=== PATIENT | male | born 1950 | race Caucasian/White ===

== ENCOUNTER 2017-03-08 06:42 | Inpatient (IN) | payer OTHER ==
[2017-01-15 11:18] VITALS: BMI 31.6
--- NOTE | 2017-01-15 11:40 | PAT Medication Instructions ---
Service Date Jan 15, 2017. Current Home Medication List Aspirin (Aspirin Ec), 81 MG PO QPM Atorvastatin (Lipitor), 20 MG PO HS Cholecalciferol (Vitamin D3), 1 TAB PO UD Diclofenac (Voltaren), 75 MG PO BID PRN for Pain Olmesartan/Hctz (Benicar Hct 20/12.5), 1 TAB PO QAM Medication Instructions For Your Scheduled Surgery Contact your surgeon for instructions for: Diclofenac (Voltaren), 75 MG PO BID PRN for Pain - Hold the following medications the morning of surgery: Olmesartan/Hctz (Benicar Hct 20/12.5), 1 TAB PO QAM Cholecalciferol (Vitamin D3), 1 TAB PO UD - Take the following medications as scheduled the night before surgery: Aspirin (Aspirin Ec), 81 MG PO QPM Atorvastatin (Lipitor), 20 MG PO HS If you have any questions please call us at [phone] or [phone] or [phone]
[2017-01-15 11:44] LABS: EOS % 0.7 %; EOS ABS # 0.03 K/uL (0-0.5); HEMATOCRIT 37.5 % (42-52); HEMOGLOBIN 12.8 g/dL (14.0-18.0); IG# 0.01 K/uL (0.00-0.02); LYMPH % 19.9 %; LYMPH ABS # 0.85 K/uL (1.2-3.4); MEAN CELL VOLUME 86.4 fL (80-100); MEAN CORPUSCULAR HEMOGLOBIN 29.5 pg (25-34); MEAN CORPUSCULAR HGB CONC 34.1 g/dl (32-36); MONO ABS # 0.64 K/uL (0.11-0.59); NEUT % 64.2 %; NEUT ABS # 2.74 K/uL (1.4-6.5); PLATELET COUNT 130 K/uL (130-400); RED CELL DISTRIBUTION WIDTH CV 13.1 % (11.5-14.5); RED CELL DISTRIBUTION WIDTH SD 41.6 fL (36.4-46.3); WHITE BLOOD COUNT 4.27 K/uL (4.8-10.8)
[2017-01-15 11:52] LABS: INR 1.1 (0.9-1.1); PTT PATIENT 25.2 SECONDS (21.0-31.0)
--- NOTE | 2017-01-15 12:25 | DIAGNOSTIC IMAGING REPORT ---
CHEST 2 VIEWS ROUTINE HISTORY: 66 years-old Male pat preoperative exam. No acute chest complaints. COMPARISON: None available TECHNIQUE: PA and lateral views of the chest FINDINGS: Mild right hemidiaphragmatic elevation. Cardiac mediastinal and hilar silhouettes are within normal limits. There is no pneumothorax, pleural effusion, focal airspace consolidation or overt pulmonary edema. Bones of the chest appear grossly intact. Mild multilevel endplate spurring of the spine. IMPRESSION: No acute cardiopulmonary process. The above report was generated using voice recognition software. It may contain grammatical, syntax or spelling errors. Electronically signed by: Jourdan Pacheco M.D. 01/15/2017 12:24 PM Dictated Date/Time: 01/15/2017 12:23 PM
[2017-01-15 14:43] LABS: CALCIUM 9.4 mg/dl (8.5-10.1); CREATININE 1.27 mg/dl (0.60-1.40)
[2017-01-16 10:04] VITALS: Ht 188 cm; Wt 111.8 kg
--- NOTE | 2017-03-02 22:18 | HISTORY & PHYSICAL EXAMINATION ---
DATE OF ADMISSION: 03/08/2017 CHIEF COMPLAINT: Bilateral knee pain and discomfort, right side greater than left. HISTORY OF PRESENT ILLNESS: A 67-year-old gentleman referred by my partner Dr. Chaudhary for treatment of his knees. He has got a long history of bilateral knee pain and discomfort that has gotten gradually worse over the past several years. He has been treated with injections, which helped temporarily, but become less effective over time. The right knee is a bit worse than the left. He would now like to proceed with surgical treatment. He does have a history of some chronic back problems as well as kidney stones. PAST MEDICAL HISTORY: Significant for: 1. Hypertension. 2. Elevated cholesterol. 3. Arthritis. 4. Kidney stones. PAST SURGICAL HISTORY: Includes: 1. Kidney stone removal x2 2. Rectal abscess resection. ALLERGIES: None. CURRENT MEDICATIONS: 1. Benicar/hydrochlorothiazide 40/12 once a day. 2. Lipitor 20 mg a day. 3. Metformin. SOCIAL HISTORY: A 67-year-old male patient from [place]. He is . He does not drink. No significant smoking history. FAMILY HISTORY: Negative for heart disease, diabetes, or blood clots. REVIEW OF SYSTEMS: Negative for diabetes, neurologic problems, vascular problems or bleeding disorders. He does have a history of kidney stones and back pain. No current chest pain or shortness of breath. PHYSICAL EXAMINATION: GENERAL: Shows a fairly large middle aged, healthy appearing male. HEENT: Benign. NECK: Supple. No lymphadenopathy. LUNGS: Clear to auscultation. HEART: Regular rate and rhythm. ABDOMEN: Soft, nontender, nondistended. EXTREMITIES: Grossly neurovascularly intact except as follows: Examination of both knees reveals the patient walks with a varus alignment to his knees. He has got moderate size effusions bilaterally. Range of motion is pretty symmetrically about 5 degrees short of full extension and 120 degrees of flexion. There is no pain with hip motion. No instability in either knee. X-RAYS: X-rays of both knees were reviewed. It shows advanced bilateral knee DJD. He has got tricompartmental disease. Both knees are pretty similar. He has got joint space loss. He has got osteophytes. ASSESSMENT: A 67-year-old male with advanced bilateral knee degenerative joint disease, right side more symptomatic than the left. He has failed conservative treatment and would like to have his right knee replaced. PLAN: We will take him to the operating room and do a right total knee replacement. The risks and benefits of this procedure were explained to the patient including but not limited to DVT, PE, , infection, neurologic problems, vascular problems, bleeding disorders or bleeding problems, pain, limited motion, stiffness, need for revision surgery, etc. The patient understands and desires to proceed. He knows to stop NSAIDs 10 days preop. Will hold his metformin 2 days preop. He is hoping to be discharged to home using [facility] home health program. FIDE
[~2017-03-08] VITALS: Ht 188 cm; Wt 111.8 kg
[~2017-03-08 06:42] MED LIST: ACETAMINOPHEN 500 MG TAB PO SCH; ASPI81TA28 PO; ATOR-22 PO; BNC/20125 PO; BUPIVACAINE 0.25% 30 ML VIAL ONE; BUPIVACAINE 0.5 % 5 MG/1 ML PF 10ML VIAL ONE; BUPIVACAINE LIPOSOME 266 MG, BUPIVACAINE/EPINEPHRINE INJ 50 ML, SODIUM CHLORIDE 0.9% PF... INFIL SCH; CEFAZOLIN 2000MG IV PUSH 10 ML IV SCH; DICL-201 PO; FAMOTIDINE 20 MG TAB PO SCH; GABAPENTIN 300 MG CAP PO SCH; LACTATED RINGER'S 1000ML 1,000 ML IV SCH; LACTATED RINGER'S 1000ML 500 ML IV SCH; LACTATED RINGER'S 1000ML IV SCH; METOCLOPRAMIDE HCL 10 MG TAB PO SCH; SCOPOLAMINE 1.5 MG TDSY TD SCH; TRANEXAMIC ACID INJ 1,000 MG in SYRINGE 0 ML IV SCH; VTMD1000 PO
--- NOTE | 2017-03-08 06:47 | History & Physical Bridge Note ---
H&P Re-Evaluation Bridge Note: I have examined the patient, reviewed the History & Physical and in the interval since the performance of the History & Physical I have noted the following changes of clinical significance: No changes noted
[2017-03-08] MEDS ORDERED: MIDAZOLAM HCL 1 MG/ML 2ML VIAL ONE (06:57)
[2017-03-08 07:10] VITALS: BP 142/86; PULSE 93; TEMP 36.5; O2SAT 94
[2017-03-08] MEDS ORDERED: SODIUM CHLORIDE 0.9% PF 50 ML VIAL ONE (09:09)
[2017-03-08] MEDS ORDERED: BUPIVACAINE/EPINEPHRINE 0.25% 1:200,000 30 ML VIAL ONE (09:09)
[2017-03-08] MEDS ORDERED: BACITRACIN 50000 UNIT VIAL ONE (09:09)
[2017-03-08] MEDS ORDERED: BUPIVACAINE LIPOSOME 1/3% 266 MG/20 ML VIAL INFIL ONE (09:09)
[2017-03-08] MEDS ORDERED: ONDANSETRON INJ 2 MG/ML 2 ML VIAL IV PRN ×2 (09:30→11:15)
[2017-03-08] MEDS ORDERED: ATROPINE SULFATE 0.1 MG/ML 5ML SYR IV PRN (09:30)
[2017-03-08] MEDS ORDERED: FENTANYL CITRATE INJ 50 MCG/1 ML 2 ML VIAL IV PRN (09:30)
[2017-03-08] MEDS ORDERED: EpHEDrine SULFATE INJ 50 MG/ML AMP IV PRN (09:30)
[2017-03-08] MEDS ORDERED: KETAMINE HCL INJ 50 MG/ML 10 ML VIAL ONE (09:51)
[2017-03-08] MEDS ORDERED: LIDOCAINE HCL 2% 2 ML VIAL (20MG/ML) ONE (09:51)
[2017-03-08] MEDS ORDERED: PROPOFOL IV EMULSION 10 MG/ML 20 ML VIAL IV ONE (09:51)
--- NOTE | 2017-03-08 11:07 | [facility] Post Operative Brief Note ---
Immediate Operative Summary Operative Date Mar 08, 2017. Pre-Operative Diagnosis Right Knee Advanced Degenerative Joint Disease Post-Operative Diagnosis Right Knee Advanced Degenerative Joint Disease Procedure(s) Performed Right Total Knee Arthroplasty Surgeon Dr. Goyal [employer] Teacher Surgeon(s) SHERYL Gr Estimated Blood Loss 50 ml Findings Consistent with Post-Op Diagnosis Fluids (cc crystalloids) 1600 cc Specimens A. Right Knee Bone and Tissue Drains None Anesthesia Type MAC Spinal Regional Complication(s) none Disposition Accompanied Pt To Recover: no Disposition: Recovery Room / PACU
[2017-03-08] MEDS ORDERED: HYDROmorphone INJ 0.5 MG/0.5 ML SYR IV PRN (11:15)
[2017-03-08] MEDS ORDERED: GLUCAGON FOR INJ 1 MG VIAL SQ PRN (11:15)
[2017-03-08] MEDS ORDERED: DEXTROSE 50% 50 ML SYR IV PRN (11:15)
[2017-03-08] MEDS ORDERED: METOCLOPRAMIDE HCL INJ 5 MG/ML 2 ML VIAL IV PRN (11:15)
[2017-03-08] MEDS ORDERED: TAMSULOSIN HCL 0.4 MG CAP PO PRN (11:15)
[2017-03-08] MEDS ORDERED: GLUCOSE 10 TABS/TUBE PO PRN (11:15)
[2017-03-08] MEDS ORDERED: CHOLECALCIFEROL 1000 INTER.UNIT TAB PO SCH (11:15)
[2017-03-08] MEDS ORDERED: ALUMINUM/MAGNESIUM/SIMETH (MAALOX MAX) 30 ML UDC PO PRN (11:15)
[2017-03-08] MEDS ORDERED: GLUCOSE 40% GEL 15 GM TUBE PO PRN (11:15)
[2017-03-08] MEDS ORDERED: MAGNESIUM HYDROXIDE SUSP 30 ML UDC PO PRN (11:15)
[2017-03-08] MEDS ORDERED: SILVER SULFADIAZINE 1% CR 50 GM JAR EXT PRN (11:15)
[2017-03-08] MEDS ORDERED: ZOLPIDEM TARTRATE 5 MG TAB PO PRN (11:15)
[2017-03-08] MEDS ORDERED: CEFAZOLIN IV 2,000 MG in DEXTROSE 5% 50ML 50 ML IV SCH (11:15)
[2017-03-08] MEDS ORDERED: BISACODYL 10 MG SUPP PR PRN (11:15)
--- NOTE | 2017-03-08 11:37 | OPERATIVE REPORT ---
DATE OF OPERATION: 03/08/2017 SURGEON: Contreras Goyal MD FERTILIZER APPLICATOR: SHERYL Amezcua PREOPERATIVE DIAGNOSIS: Right knee degenerative joint disease. POSTOPERATIVE DIAGNOSIS: Same. PROCEDURE PERFORMED: Right cemented posterior stabilized total knee arthroplasty. COMPLICATIONS: None. ESTIMATED BLOOD LOSS: 50 mL. FLUID REPLACEMENT: 1600 mL crystalloid fluid replacement. ANESTHESIA: Spinal with adductor canal block. DRAINS: None. SPECIMENS: Right knee sent for pathology. OPERATIVE INDICATIONS: The patient is a 67-year-old gentleman, who has had a fairly long history of right knee pain and discomfort. He has been treated by my partner Dr. Chaudhary over the years with injections that had become less successful over time. He failed conservative treatment and elected to proceed with a right total knee replacement. OPERATIVE FINDINGS: Operative findings revealed advanced right knee DJD. He had grade 4 kyic-ft-vaho disease in the medial femoral condyle and medial tibial plateau. He had a varus deformity to his knee. He had significant patellofemoral arthritis as well. Moderate-sized joint effusion. OPERATIVE IMPLANTS: Operative implants consisted of: 1. Biomet Vanguard size 72.5 right posterior stabilized femoral component. 2. Biomet size 79 tibial tray. 3. A 10-mm posterior stabilized polyethylene insert. 4. A 34 x 8.5 all poly patella. OPERATIVE PROCEDURE: The patient was taken to the operating room, identified and placed on the operating table in the supine position. All contact areas were appropriately padded. IV antibiotics were provided by the anesthesia team. A spinal anesthetic and adductor canal block had been provided in the holding area. Simmons catheter was placed in sterile fashion. The right lower extremity was then prepped and draped in the usual sterile fashion. The right leg was elevated and exsanguinated with an Esmarch and tourniquet was placed at 300 mmHg. An anterior approach to the right knee was then performed through a longitudinal incision centered over the patella. Sharp dissection was carried out through the subcutaneous tissues down to the level of the extensor mechanism. A medial parapatellar arthrotomy incision was made. Some subperiosteal dissection was carried out medially. The fat pad was resected from beneath the patellar tendon. The lateral patellofemoral ligament was released. The patella was everted. It was very difficult to trista and it was a fairly large patella, so I elected to cut the patella first. The knee was brought out into full extension. I everted the patella and cleaned the soft tissues off the patella. The patella thickness measured 25 mm in thickness and it was cut down to 15. It was sized to a size 34 patella. Lateral osteophyte was removed. I did not prepare the remainder of the patella until the end of the case. The knee was then flexed. The osteophytes were taken off the distal femur. The ACL and PCL were then released from the distal femur and the tibia subluxated anteriorly. The external tibial alignment jig was then placed in the anterior face of the tibia and adjusted 16 mm medially. Proximal tibial cut was made to remove about a millimeter of bone from most efficient deficient aspect of the medial tibial plateau. I then sized the tibia. I ended up using a 79 tibial tray. The 83 covered the tibia, but it had some overhanging posterolaterally and I did not want that, so we downsized this slightly. Some osteophytes were taken off medially. Attention was then drawn to the femur. The distal femur was entered with a sharp drill. Intramedullary canal was suctioned. A right 6-degree valgus cutting guide was placed. Distal femoral cutting block was pinned in place. Distal femoral cut was made to take an additional 3 mm of bone off the distal femur. The femur was then sized to a size 72.5. We did downsize this slightly. The AP cutting block was pinned parallel to the epicondylar axis, which was 3 degrees of external rotation. The anterior cut, anterior chamfer, posterior cut, and posterior chamfer cuts were made. Box cutting guide was placed and adjusted slightly lateral and the box cut was made. The knee was flexed. The remnants of the medial and lateral menisci were excised. The osteophytes were taken off the posterior aspect of the femur. Trial femoral component was placed. Tibial tray was pinned in maximum external rotation and drill and stem punch were used to create defect in proximal tibia for the tibial tray. The knee was then trialed and a 10-mm insert fit most appropriately. Attention was then drawn to the patella. The patella was cleaned of all soft tissues. The patella was then prepared. We had previously cut this already. Lug holes were drilled for a 34 patella. The patella button was placed. Knee was taken through range of motion and patella tracked nicely with no thumbs test. Attention was then drawn toward placement of the permanent components. All trial components were removed. Bone plug was placed in the distal femur to limit blood loss. A double batch of Palacos G cement was mixed. A right size 72.5 posterior stabilized femoral component, size 79 tibial tray, a 10-mm posterior stabilized polyethylene insert, and a 34 x 8.5 all poly patella then cemented in place. Knee was brought out in extension until cement hardened. A final cement check was then performed. Pericapsular tissues were injected with a total of 100 mL of a combination of 20 mL of Exparel, 30 mL of normal saline, and 50 mL of 0.25% Marcaine with epinephrine. The patient did receive 1 gram of tranexamic acid. The tourniquet was then let down for final tourniquet time of 59 minutes. Hemostasis was assured with use of electrocautery. The extensor mechanism was then closed with a combination of #1 PDS suture and #1 Vicryl suture in a [id number] fashion. Extensor mechanism was checked and found to be intact. The subcutaneous tissues were then closed with 2-0 Dexon suture in a buried interrupted fashion. Skin was closed skin francisco. Leg was then cleaned and dried and a sterile dressing of Xeroform, 4 x 4, sterile cast padding and Doug bandage were applied. The patient then transferred to the recovery room in stable condition. The patient tolerated the procedure well with no complications. All needle and sponge counts were correct at the end of the operation. I attest to the content of the Intraoperative Record and any orders documented therein. Any exception s are noted below.
--- NOTE | 2017-03-08 11:44 | Anesthesiology Progress Note ---
Anesthesia Post Op Note Date & Time Mar 08, 2017 at 11:44 Vital Signs Vital Signs Past 12 Hours Date Time Temp Pulse Resp B/P (MAP) Pulse Ox O2 Delivery O2 Flow Rate FiO2 03/08/17 11:40 76 16 114/61 100 4 03/08/17 11:30 84 16 115/64 99 4 03/08/17 11:20 86 16 120/64 99 4 03/08/17 11:11 36.8 85 16 111/63 100 Oxymask 10 03/08/17 07:10 36.5 93 20 142/86 94 Room Air Notes Mental Status: alert / awake / arousable, participated in evaluation Pt Amnestic to Procedure: Yes Nausea / Vomiting: adequately controlled Pain: adequately controlled Airway Patency, RR, SpO2: stable & adequate BP & HR: stable & adequate Hydration State: stable & adequate Neuraxial Anesthesia: was administered, sensory block is resolving Anesthetic Complications: no major complications apparent
--- NOTE | 2017-03-08 12:13 | DIAGNOSTIC IMAGING REPORT ---
R KNEE 1 OR 2 VIEWS ROUTINE CLINICAL HISTORY: Right knee degenerative joint disease. Arthroplasty. COMPARISON: Right knee radiographs March 04, 2017. FINDINGS: Alignment of the total right knee arthroplasty is anatomic. There is no fracture or unexpected radiopaque foreign body. Skin francisco are present. IMPRESSION: Expected findings following total right knee arthroplasty. Electronically signed by: Esteban Noel M.D. 03/08/2017 12:11 PM Dictated Date/Time: 03/08/2017 12:11 PM
[2017-03-08 13:45] VITALS: BP 107/62; PULSE 89; O2SAT 98
[2017-03-08 14:19] VITALS: BP 101/62; PULSE 82; O2SAT 97
[2017-03-08 15:12] VITALS: BP 144/79; PULSE 71; TEMP 36.7; O2SAT 98
[2017-03-08] MEDS: SODIUM CHLORIDE 0.9% 1000ML 1,000 ML IV SCH ×2 (15:38→21:36)
[2017-03-08] MEDS: KETOROLAC TROMETHAMINE 15 MG/ML VIAL IV. SCH ×2 (15:38→21:35)
[2017-03-08] MEDS ORDERED: CHECK SCOPOLAMINE PATCH PLACEMENT SCH (16:00)
[2017-03-08] MEDS ORDERED: TRANEXAMIC ACID INJ 1,000 MG in SODIUM CHLORIDE 0.9% 100ML 100 ML IV SCH (17:15)
--- NOTE | 2017-03-08 17:48 | PROGRESS NOTE ---
DATE: 03/08/2017 SUBJECTIVE: A 67-year-old male postop from right knee replacement. He is doing pretty well. He is having some spasm in his quad. Denies any chest pain or shortness of breath. Not feeling dizzy or lightheaded. OBJECTIVE: VITAL SIGNS: Temperature 36.7. Vital signs stable. PHYSICAL EXAMINATION: GENERAL: Reveals a pleasant middle-aged male. He is sitting up in his bedside with his legs dangling over the bed. His knee is bent about 90 degrees. He looks reasonably comfortable. LUNGS: Clear to auscultation. HEART: Regular rate and rhythm. ABDOMEN: Soft, nontender, nondistended. EXTREMITIES: Grossly neurovascularly intact except as follows: Examination of the right leg reveals the knee to be bent at about 90 degrees. There is no significant drainage on the dressing. He can dorsiflex and plantarflex his foot appropriately. He is neurologically intact. X-RAYS: X-ray of the right knee from recovery room reviewed. It shows right cemented posterior stabilized total knee arthroplasty. Components are looking to be in good position. No signs of problems. ASSESSMENT: A 67-year-old gentleman postop from right knee replacement, doing well. His pain is controlled. He is neurologically intact. He does have a little bit of muscle spasms. PLAN: 1. DVT prophylaxis including thigh-high TEDs, SCDs, and aspirin twice a day. 2. PT/OT. Weightbearing as tolerated. Right total knee protocol. 3. Pain control. Doing pretty well with current pain regimen. Really not much to do for the muscle spasms other than give them time. 4. IV antibiotics x24 hours. 5. Disposition: Plan to discharge to home with some home health once adequately recovered.
[2017-03-08] MEDS: FERROUS GLUCONATE 324 MG TAB PO SCH (18:24)
[2017-03-08] MEDS: CEFAZOLIN IV 2,000 MG in SYRINGE 0 ML IV SCH (18:26)
[2017-03-08] MEDS: INSULIN HUMAN REGULAR SC SCH ×2 (18:28→20:57)
[2017-03-08 19:55] VITALS: BP 126/60; PULSE 74; TEMP 37.1; O2SAT 98
[2017-03-08] MEDS: ATORVASTATIN 20 MG TAB PO SCH (20:52)
[2017-03-08] MEDS: DOCUSATE SODIUM 100 MG CAP PO SCH (20:52)
[2017-03-08] MEDS: SENNA 8.6 MG TAB PO SCH (20:53)
[2017-03-08] MEDS: ASPIRIN 325 MG ECTAB PO SCH (20:53)
[2017-03-08] MEDS: TRAMADOL HCL 50 MG TAB PO PRN (20:54)
[2017-03-08] MEDS: ACETAMINOPHEN 500 MG TAB PO SCH (21:35)
[2017-03-08 23:19] VITALS: BP 138/67; PULSE 86; TEMP 37.5; O2SAT 94
[2017-03-09] MEDS: CEFAZOLIN IV 2,000 MG in SYRINGE 0 ML IV SCH (02:14)
[2017-03-09] MEDS: TRAMADOL HCL 50 MG TAB PO PRN ×4 (02:22→19:41)
[2017-03-09 03:06] VITALS: BP 129/69; PULSE 87; TEMP 37.4; O2SAT 95
[2017-03-09] MEDS: KETOROLAC TROMETHAMINE 15 MG/ML VIAL IV. SCH ×4 (04:09→21:31)
[2017-03-09] MEDS: SODIUM CHLORIDE 0.9% 1000ML 1,000 ML IV SCH ×2 (05:45→12:12)
[2017-03-09] MEDS: ACETAMINOPHEN 500 MG TAB PO SCH ×3 (05:46→21:31)
[2017-03-09 07:06] VITALS: BP 124/73; PULSE 90; TEMP 36.8; O2SAT 95
--- NOTE | 2017-03-09 07:29 | PROGRESS NOTE ---
DATE: 03/09/2017 SUBJECTIVE: A 67-year-old gentleman postop day #1 from a right knee replacement. She is doing pretty well. Moderate amount of pain, but is responding to pain medicines. Denies any chest pain or shortness of breath. Not feeling dizzy or lightheaded. OBJECTIVE: VITAL SIGNS: Temperature 36.8. Vital signs stable. GENERAL: Physical examination reveals a pleasant, middle-aged male. He is lying in bed and looks pretty comfortable. EXTREMITIES: Examination of the right leg reveals the dressing to be clean, dry and intact. No significant drainage. He can dorsiflex and plantarflex his foot appropriately. He is neurologically intact. LABORATORY DATA: Pending. ASSESSMENT: A 67-year-old gentleman postop day #1 from a right knee replacement, doing pretty well. His pain is reasonably well controlled. He is neurologically intact. PLAN: 1. DVT prophylaxis including thigh-high TEDs, SCDs, and aspirin twice a day. 2. PT/OT. Weightbear as tolerated. Right total knee protocol. 3. Pain control. Doing pretty well with current pain regimen. 4. Disposition: Plan to discharge to home with some home health once adequately recovered.
[2017-03-09 07:57] LABS: HEMATOCRIT 35.4 % (42-52); HEMOGLOBIN 12.4 g/dL (14.0-18.0); MEAN CELL VOLUME 85.1 fL (80-100); MEAN CORPUSCULAR HEMOGLOBIN 29.8 pg (25-34); PLATELET COUNT 144 K/uL (130-400); RED CELL DISTRIBUTION WIDTH CV 13.5 % (11.5-14.5); RED CELL DISTRIBUTION WIDTH SD 41.5 fL (36.4-46.3); WHITE BLOOD COUNT 9.06 K/uL (4.8-10.8)
[2017-03-09 08:42] LABS: CALCIUM 8.9 mg/dl (8.5-10.1); CREATININE 1.26 mg/dl (0.60-1.40); POTASSIUM 3.9 mmol/L (3.5-5.1)
[2017-03-09] MEDS ORDERED: OLMESARTAN PO SCH (09:00)
[2017-03-09] MEDS ORDERED: HCTZ PO SCH (09:00)
[2017-03-09] MEDS: ASPIRIN 325 MG ECTAB PO SCH ×2 (09:25→21:31)
[2017-03-09] MEDS: FERROUS GLUCONATE 324 MG TAB PO SCH ×3 (09:25→18:26)
[2017-03-09] MEDS: OLMESARTAN MEDOXOMIL 20 MG TAB PO SCH (09:26)
[2017-03-09] MEDS: HYDROCHLOROTHIAZIDE 25 MG TAB PO SCH (09:26)
[2017-03-09] MEDS: PANTOprazole SOD 40 MG TAB PO SCH (09:26)
[2017-03-09] MEDS: MULTIVITAMIN TAB PO SCH (09:27)
[2017-03-09] MEDS: DOCUSATE SODIUM 100 MG CAP PO SCH ×2 (09:27→21:29)
[2017-03-09] MEDS: INSULIN HUMAN REGULAR SC SCH ×4 (09:33→21:40)
--- NOTE | 2017-03-09 09:52 | Anesthesiology Progress Note ---
Anesthesia Post Op Note Date & Time Mar 09, 2017 at 09:51 Vital Signs Vital Signs Past 12 Hours Date Time Temp Pulse Resp B/P (MAP) Pulse Ox O2 Delivery O2 Flow Rate FiO2 03/09/17 07:06 36.8 90 18 124/73 (90) 95 Room Air 03/09/17 03:06 37.4 87 18 129/69 (89) 95 Room Air 03/08/17 23:19 37.5 86 20 138/67 (90) 94 Room Air Notes Mental Status: alert / awake / arousable, participated in evaluation Pt Amnestic to Procedure: Yes Nausea / Vomiting: adequately controlled Pain: adequately controlled Airway Patency, RR, SpO2: stable & adequate BP & HR: stable & adequate Hydration State: stable & adequate Neuraxial Anesthesia: was administered, sensory block resolved Anesthetic Complications: no major complications apparent
[2017-03-09 10:47] VITALS: BP 128/78; PULSE 95; TEMP 36.7; O2SAT 97
[2017-03-09 14:52] VITALS: BP 123/66; PULSE 95; TEMP 37.2; O2SAT 97
[2017-03-09] MEDS: ATORVASTATIN 20 MG TAB PO SCH (21:29)
[2017-03-09] MEDS: SENNA 8.6 MG TAB PO SCH (21:29)
[2017-03-09 23:31] VITALS: BP 136/72; PULSE 87; TEMP 36.9; O2SAT 96
[2017-03-10] MEDS: KETOROLAC TROMETHAMINE 15 MG/ML VIAL IV. SCH ×2 (03:30→10:20)
[2017-03-10] MEDS: ACETAMINOPHEN 500 MG TAB PO SCH (05:46)
[2017-03-10 06:34] VITALS: BP 127/75; PULSE 84; TEMP 36.9; O2SAT 97
[2017-03-10] MEDS: FERROUS GLUCONATE 324 MG TAB PO SCH (07:38)
[2017-03-10] MEDS: OLMESARTAN MEDOXOMIL 20 MG TAB PO SCH (07:38)
[2017-03-10] MEDS: DOCUSATE SODIUM 100 MG CAP PO SCH (07:39)
[2017-03-10] MEDS: ASPIRIN 325 MG ECTAB PO SCH (07:40)
[2017-03-10] MEDS: HYDROCHLOROTHIAZIDE 25 MG TAB PO SCH (07:41)
[2017-03-10] MEDS: MULTIVITAMIN TAB PO SCH (07:41)
[2017-03-10] MEDS: PANTOprazole SOD 40 MG TAB PO SCH (07:42)
[2017-03-10] MEDS: INSULIN HUMAN REGULAR SC SCH (07:48)
[2017-03-10] MEDS ORDERED: ULT50X PO (08:03)
[2017-03-10] MEDS ORDERED: ASPEC325 PO (08:03)
[2017-03-10] MEDS ORDERED: ACET-24 PO (08:03)
--- NOTE | 2017-03-10 08:05 | Discharge Instructions ---
Discharge Instructions Date of Service Mar 10, 2017. Admission Reason for Admission: Right Knee Degenerative Joint Disease Discharge Discharge Diagnosis / Problem: Right Knee Replacement Discharge Goals Goal(s): Decrease discomfort, Improve function, Increase independence, Improve disease control, Therapeutic intervention Activity Recommendations Activity Limitations: per Instructions/Follow-up section Weightbearing Status: Right weightbearing . Instructions / Follow-Up Instructions / Follow-Up ACTIVITY RECOMMENDATIONS: Physical Therapy: * You will go to physical therapy three times each week for four to six weeks after your surgery in order to regain your knee range of motion and to retrain your knee to work properly. * It is just as important to make sure you are getting your knee perfectly straight as it is to regain your knee bend. * Taking a pain pill an hour before therapy can help you have a more productive and comfortable therapy session. Home Exercise: * You were shown a series of exercises (heel props, heel slides, etc.) in the hospital. Do these exercises three to four times each day including the exercises you were shown in physical therapy. Walking: * Get up and walk several times each day. For the first four weeks, try not to stand or walk for more than one hour at a time. If you do stand or walk for more than one hour, you will not hurt anything, but your knee and leg will likely swell. * As you feel comfortable, you may change from the walker or crutches to a cane and then to independent walking. MEDICATIONS: New Medicine: * You will likely be taking one or more of these medications: 1. Tramadol - A quick and shorter-acting pain medication. Take one to two tablets every four to six hours to lessen your pain. 2. Aspirin - Thins your blood to lessen the chance of forming a blood clot. * The most common side effects of pain medicine and iron are nausea and constipation. If nausea or constipation is too much of a problem or if you have any questions about your new medicines or doses, call [facility] at [phone]. We will try to help you manage these issues. VERY IMPORTANT TO READ AND REVIEW" Pain: * The immediate post-operative period after knee replacement surgery is often quite painful. * You are given a prescription for pain medicine. You should take it, as directed, when you need it, especially before physical therapy and before going to bed. Pain that interferes with sleep is very common and can last several months. * You will likely need pain medicine for the first four to six weeks. It will not stop all of the pain. The pain will lessen and as you feel better, you may change to milder pain medicine such as Tylenol. * The most common side effects of pain medicine are nausea and constipation, so don't take more than you need. SPECIAL CARE INSTRUCTIONS: TEDs/Elastic Stockings: * The white elastic stockings help limit swelling and prevent blood clots from forming in your legs. The more you wear them, the more they work. * Wear them for six weeks after knee replacement surgery and four weeks after partial knee replacement. Prevention of Infection: * Take antibiotics one hour before any dental cleaning, dental work, urological procedure, gastrointestinal procedure or any invasive surgery in order to prevent your new joint from getting infected. * You may get the antibiotics from the doctor performing the procedure or you may call our office at before and we will call in a prescription to the pharmacy of your choice. Things to Watch For: * Drainage from the incision site that occurs more than one week after your surgery. * Severely increased knee/leg pain or swelling. * Increased redness at the incision site. * Fever above 102 degrees Fahrenheit. * Unusual chest pain or shortness of breath. * Unusual pain or burning with urination. Call [facility] at with any of the above problems or if you have any questions about your medicines or recovery. FOLLOW UP VISIT: Make an appointment to see your doctor for approximately two weeks after surgery for a progress check and staple removal by calling the office at . Current Hospital Diet Patient's current hospital diet: Diabetes Type 2 Diet Discharge Diet Recommended Diet: Diabetes Type 2 Diet Procedures Procedures Performed: Right Total Knee Arthroplasty Pending Studies Studies pending at discharge: no Laboratory Results Hemoglobin A1c Test 01/15/17 11:13 Range/Units Estimated Average Glucose 126 mg/dl Hemoglobin A1c 6.0 H 4.5-5.6 % Medical Emergencies . Who to Call and When: Medical Emergencies: If at any time you feel your situation is an emergency, please call 911 immediately. . Non-Emergent Contact Non-Emergency issues call your: Surgeon . "Provider Documentation" section prepared by Contreras Goyal. . VTE Core Measure Inpt VTE Proph given/why not?: Other Anticoagulation, T.E.D. Stockings, SCD's
--- NOTE | 2017-03-10 08:15 | PROGRESS NOTE ---
DATE: 03/10/2017 SUBJECTIVE: A 67-year-old gentleman postop day 2 from a right knee replacement. He is doing well. Pain is improved today. No chest pain or shortness of breath. Not feeling dizzy or lightheaded. OBJECTIVE: VITAL SIGNS: Temperature 36.9. Vital signs stable. PHYSICAL EXAMINATION: GENERAL: Reveals a healthy, pleasant, middle-aged male. He is sitting up in bed and looks pretty comfortable. EXTREMITIES: Examination of the right leg reveals the dressing to be clean, dry and intact. Leg is well aligned. He can dorsiflex and plantarflex his foot appropriately. Calf is soft and supple. He is neurologically intact. ASSESSMENT: A 67-year-old gentleman postop day 2 from a right knee replacement, doing pretty well. Pain is controlled. He is neurologically intact. PLAN: 1. DVT prophylaxis including thigh-high TEDs, SCDs, and aspirin twice a day. 2. PT, OT. Weight bear as tolerated. Right total knee protocol. 3. Pain control, doing well with current pain regimen. 4. Disposition: Plan to discharge to home with some home health later today.
[2017-03-10 10:51] VITALS: BP 127/75; PULSE 84; TEMP 36.9; O2SAT 97
[2017-03-10] MEDS: TRAMADOL HCL 50 MG TAB PO PRN (11:26)
--- NOTE | 2017-03-21 09:58 | DISCHARGE SUMMARY ---
ADMITTING PHYSICIAN AND SURGEON: Contreras Goyal MD. ADMITTING DIAGNOSIS: Right knee degenerative joint disease. SURGERY PERFORMED: Right total knee arthroplasty. SECONDARY DIAGNOSES: Hypertension, elevated cholesterol, arthritis, kidney stones. CONSULTS: None obtained. HISTORY AND PHYSICAL EXAMINATION: Well documented in the patient's chart. HOSPITAL COURSE: The patient was admitted on 03/08/2017 underwent total knee arthroplasty. He tolerated the procedure well. There were no complications. He was transferred to the PACU postoperatively and later to the orthopedic floor for further care. He was given Ancef for antibiotic prophylaxis, ARMIDA stockings, SCDs and aspirin for DVT prophylaxis. Hemoglobin, hematocrit and vital signs were monitored during hospital stay and remained stable. He did not require any blood transfusions. There were no complications. By postoperative day 2, he was tolerating a regular diet, pain was controlled with oral pain medicine. He was participating in physical therapy and had no signs or symptoms of deep vein thrombosis. On postop day 2, he was discharged home and set up with home health services, given printed discharge instructions including new prescription for extra strength Tylenol, aspirin 325 mg b.i.d. and tramadol. Continue his home medications, continue physical therapy, weightbearing as tolerated, ARMIDA stockings. Follow up in 10-12 days or sooner if there are any problems or concerns.
== END 2017-03-10 12:02 | disposition home health service (06) | DRG 470 ==
LOC: C.ACU 06:42 → C.MSN 11:13 → ENRESERV 12:51
PROVIDERS: ADMIT Orthopaedic Surgery Sports Medicine; ATTEND Orthopaedic Surgery Sports Medicine
PROC: 0SRC0J9 Replacement of Right Knee Joint with Synthetic Substitute, Cemented, Open Approach (ICD-10-PCS; principal; 2017-03-08 09:15)
DX: M17.11 Unilateral primary osteoarthritis, right knee (principal); I10 Essential (primary) hypertension; E78.5 Hyperlipidemia, unspecified; Z88.5 Allergy status to narcotic agent; Z88.8 Allergy status to other drugs, medicaments and biological substances

== ENCOUNTER 2023-10-30 07:39 | Observation (INO) ==
--- NOTE | 2023-09-21 13:51 | PAT Medication Instructions ---
Medication Instructions Date of Service September 21, 2023 Home Medications Motrin 2 tab PO HS PRN atorvastatin 20 mg tablet 20 mg PO HS cetirizine 10 mg tablet (Zyrtec) 10 mg PO DAILY PRN cholecalciferol (vitamin D3) 25 mcg (1,000 unit) capsule (Vitamin D3) 25 mcg PO HS doxycycline hyclate 75 mg tablet 75 mg PO HS ASK your surgeon for instructions Motrin 2 tab PO HS PRN DO NOT take the morning of surgery cetirizine 10 mg tablet (Zyrtec) 10 mg PO DAILY PRN Take evening before surgery atorvastatin 20 mg tablet 20 mg PO HS cholecalciferol (vitamin D3) 25 mcg (1,000 unit) capsule (Vitamin D3) 25 mcg PO HS doxycycline hyclate 75 mg tablet 75 mg PO HS Other Notes NOTHING TO EAT OR DRINK AFTER MIDNIGHT. If you have any questions please call us at [phone] or [phone] or [phone] or [phone]
--- NOTE | 2023-10-01 10:21 | Anesthesiology Consultation ---
Date of Service October 01, 2023 Assessment & Plan (1) Encounter for pre-operative examination: Plan - check BSG am DOS. - difficult IV stick. IV team. - Outpatient joint assessment: Patient is currently scheduled for inpatient pathway. If re-evaluated and patient/surgeon requests outpatient pathway, patient is acceptable candidate for outpatient joint program from anesthesia standpoint pending surgeon's office assessment of pt motivation/support/comple tion of same day joint program preop requirements. Chart Review Chart Review: Acceptable Risk for Surgery and Patient seen in Pre Admission Testing Teaching & Discussion Pre-Anesthesia Teaching/Discussion Notes: Instructed NPO after midnight before surgery, except medications with 15 cc of water. Medication instructions provided according to the PAT guidelines. History Surgery Operation Date: 10/30/23 10:40 Proposed Procedures p Left Total Knee Arthroplasty - Contreras Goyal MD Height/Weight Height: 6 ft 1 in Weight: 102 kg Allergies Allergy/AdvReac Type Severity Reaction Status Date / Time oxycodone AdvReac Mild pt does Verified 09/18/23 10:55 not like how it makes him feel prefers not to take hydrochlorothiazide AdvReac Unknown NAUSEA,BP Verified 09/18/23 10:55 ELEVATES olmesartan AdvReac Unknown NAUSEA,BP Verified 09/18/23 10:55 ELEVATES Medications Home Medications Medication Instructions Recorded Confirmed Last Taken Motrin 2 tab PO HS PRN Pain 09/18/23 09/18/23 Unknown atorvastatin 20 mg tablet 20 mg PO HS 09/18/23 09/18/23 Unknown cetirizine 10 mg tablet (Zyrtec) 10 mg PO DAILY PRN Allergy Symptoms 09/18/23 09/18/23 Unknown cholecalciferol (vitamin D3) 25 25 mcg PO HS 09/18/23 09/18/23 Unknown mcg (1,000 unit) capsule (Vitamin D3) doxycycline hyclate 75 mg tablet 75 mg PO HS 09/18/23 09/18/23 Unknown Past Medical History Medical History Diabetes diet controlled Hyperlipidemia controlled, stable after weight loss Hypertension Slow to wake up after anesthesia following kidney surgery, only happened this one time Patient denies h/o stroke, seizures, heart attack, heart failure, blood clots/DVTs or blood transfusions. Exercise / Class Metabolic Activity II 4-5 Yardwork/Stairs/Walk up hill (denies chest discomfort or shortness of breath with one flight of stairs) Past Surgical History Surgical History History of kidney surgery ~2019, the [facility], open surgery for removal of golf ball sized kidney stone History of right knee joint replacement Hx of colonoscopy Past Anesthesia History No Family Hx of Anesthesia Complications and Other (see above) History of PONV No Hx of PONV and No Hx of Motion Sickness Social History Smoking Status: Never smoker Do You Dip or Chew Tobacco: No Hx Alcohol Use: Yes (occasional 50 years ago) Hx Substance Use: No substance use type: does not use Review of Systems Patient denies chest pain, shortness of breath, dyspnea on exertion, snoring, witnessed apneas, reflux, fever, chills, cough, wheezing, or palpitations. Physical Exam Vital Signs Vitals BP 144/90 P 89 TEMP 98.2 SP02 97% on RA RESP 18 Physical Patient resting comfortably in chair in no acute distress, alert and oriented, responding appropriately throughout visit Full cervical extension range of motion without pain TMD 3.5 finger breadths Mallampati Score 2 Dentition: intact, denies broken or loose teeth, caps/crowns, implants or bridges Lungs: normal respiratory effort. Good air movement, clear throughout to auscultation, no adventitious breath sounds Cardiac: regular rate and rhythm, no murmurs noted Carotid arteries: negative bruit bilat Lab Results Anesthesia Preop Results Results Anesthesia Widget: WBC 4.09 K/ul (4.8-10.8) L 10/01/23 Hgb 13.7 g/dl (14.0-18.0) L 10/01/23 Hct 39.3 % (42.0-52.0) L 10/01/23 Plt 126 K/uL (130-400) L 10/01/23 Na 141 mmol/L (136-145) 10/01/23 K 4.4 mmol/L (3.5-5.1) 10/01/23 Cl 108 mmol/L (98-107) H 10/01/23 CO2 28 mmol/L (21-32) 10/01/23 BUN 16 mg/dl (6-23) 10/01/23 Creat 0.79 mg/dl (0.6-1.4) 10/01/23 Glucose Level 96 mg/dl (70-99(Fasting)) 10/01/23 PT 11.3 Seconds (9.0-12.0) 10/01/23 PTT 26 Seconds (21-31) 10/01/23 INR 1.0 (0.9-1.1) 10/01/23 Blood Type O Positive 10/01/23 Antibody Screen NEGATIVE 10/01/23 Testing Laboratory Results 08/22/23 A1c: 5.2% Electrocardiogram Date: 10/01/23 NSR, rate 80 bpm Chest X-Ray Date: 10/01/23 No acute chest disease.
[~2023-10-30 07:39] MED LIST changes: -ACETAMINOPHEN 500 MG TAB PO SCH; -ASPI81TA28 PO; -ATOR-22 PO; -BNC/20125 PO; -BUPIVACAINE 0.25% 30 ML VIAL ONE; -BUPIVACAINE 0.5 % 5 MG/1 ML PF 10ML VIAL ONE; -BUPIVACAINE LIPOSOME 266 MG, BUPIVACAINE/EPINEPHRINE INJ 50 ML, SODIUM CHLORIDE 0.9% PF... INFIL SCH; -CEFAZOLIN 2000MG IV PUSH 10 ML IV SCH; -DICL-201 PO; -FAMOTIDINE 20 MG TAB PO SCH; -GABAPENTIN 300 MG CAP PO SCH; -LACTATED RINGER'S 1000ML 1,000 ML IV SCH; -LACTATED RINGER'S 1000ML 500 ML IV SCH; -LACTATED RINGER'S 1000ML IV SCH; -METOCLOPRAMIDE HCL 10 MG TAB PO SCH; +ROPIVACAINE 0.5% 5 MG/ML 30 ML VIAL ONE; -SCOPOLAMINE 1.5 MG TDSY TD SCH; -TRANEXAMIC ACID INJ 1,000 MG in SYRINGE 0 ML IV SCH; -VTMD1000 PO
[2023-10-30] MEDS ORDERED: fentaNYL citrate PF 100 MCG/2 ML VIAL ONE ×2 (07:53→07:54)
[2023-10-30] MEDS ORDERED: MIDAZOLAM HCL 1 MG/ML 2ML VIAL ONE ×2 (07:54)
[2023-10-30] MEDS: LR 60ML/HR IV SCH (08:46)
[2023-10-30] MEDS: LR 500ML BOLUS, THEN 15ML/HR IV SCH (08:46)
[2023-10-30] MEDS: METOCLOPRAMIDE HCL 10 MG TABLET PO SCH (08:47)
[2023-10-30] MEDS: FAMOTIDINE 20 MG TAB PO SCH (08:47)
[2023-10-30] MEDS: ACETAMINOPHEN 500 MG TAB PO SCH ×2 (08:47→14:24)
[2023-10-30] MEDS: CeleBREX 200 MG CAP PO SCH (08:47)
--- NOTE | 2023-10-30 09:01 | History & Physical Bridge Note ---
Date of Service October 30, 2023 History & Physical Bridge Note I have examined the patient, reviewed the History & Physical and in the interval since the performance of the History & Physical I have noted the following changes of clinical significance: no changes noted
[2023-10-30] MEDS: dexAMETHasone**PF** 10 MG/ML VIAL ONE ×2 (09:10)
[2023-10-30] MEDS: dexAMETHasone**PF** 10 MG/ML VIAL IV ONE (09:10)
[2023-10-30] MEDS ORDERED: PROPOFOL IV EMULSION 10 MG/ML 20 ML VIAL IV ONE (10:46)
[2023-10-30] MEDS: ceFAZolin 2000MG 2,000 MG/15 ML SYR IV SCH ×2 (10:48→17:57)
[2023-10-30] MEDS ORDERED: KETAMINE HCL 10MG/ML SYR ONE (11:13)
[2023-10-30] MEDS: ORTHO JOINT ANESTHETIC ONE (11:23)
[2023-10-30] MEDS: TRANEXAMIC ACID 1,000 MG **IV Intra-op IV SCH (11:43)
[2023-10-30] MEDS: ROPIV 0.5% 246mg, Ketorolac 30mg, EPINEPHrine 0.5mg in NSS INFIL SCH (11:44)
--- NOTE | 2023-10-30 12:35 | Operative Report ---
PG Post Operative Report Pre & Post Diagnosis Operation Date: 10/30/23 09:45 Pre-Op Diagnosis: Left Knee Degenerative Joint Disease Post-Op Diagnosis: Left Knee Degenerative Joint Disease I identified the patient and participated in the time-out.: Yes Procedure Operation Date: 10/30/23 09:45 Actual Procedures p Left Total Knee Arthroplasty(Left) - Contreras Goyal MD Surgeon Contreras Goyal MD Peripheral Equipment Operator Chun Telles PA-C Estimated Blood Loss 50 Findings Consistent with Post-Op Diagnosis Operative findings were advanced left knee DJD. He extensive grade 4 [id number] disease and eburnation of the entire medial compartment. He had grade 4 changes the patellofemoral joint. The lateral compartment was pretty well-preserved. He had a fixed varus deformity to his knee. Moderate-sized joint effusion. Specimens Left knee sent for pathology. Anesthesia Type Spinal MAC Complications none Disposition Accompanied Patient To Recovery: No Indications Patient is 73-year-old gentleman is had a long history of knee problems over the years. Developed progressive knee pain discomfort. He had his right knee replaced back in 2018 so recovered well from this and essentially pain-free. He developed progressive increased pain discomfort and deformity to his left knee. Failed conservative measures. He elected proceed with total knee arthroplasty. Description of Procedure Operative implants consist of: 1 Biomet Vanguard size 72.5 left posterior stabilized femoral component. 2. Biomet size 83 tibial tray. 3. 10 mm post stabilized polyethylene insert. 4. 34 x 8 and half all poly patella. The patient was taken the op room, identified, and placed on the operating table in the supine position. All contact areas were appropriately padded. IV an tibiotics tried by anesthesia team. Spinal anesthetic and adductor canal block had been provided in the holding area. A left thigh tent was then placed. The left lower extremity was then prepped and draped in usual sterile fashion. The left leg was elevated and exsanguinated with use of an Esmarch and the turn was placed at 300 mmHg. An anterior approach to the left knee was then performed to longitudinal incision centered over the patella. Sharp dissection was Through subcutaneous tissue down the extensor mechanism. A medial parapatellar arthrotomy incision was made. Some subperiosteal dissection was carried out medially. The fat pad was resected from Neath patella tendon. The lateral patellofemoral ligament was released. Patella subluxated laterally and the knee was flexed. The osteophytes taken off distal femur. The ACL PCL were then released from distal femur the tibia subluxated anteriorly. The external treatment LYMErix then placed on the anterior face the tibia and adjusted 14 mm medially. Proximal tibial cut was made to take a millimeter of bone off the most deficient aspect medial tibial plateau. The tibia was sized to a size 83. Some osteophytes taken off medially. Attention drawn the femur. Good distal femur stem with a sharp drill. Intramedullary canal was suction. A left 6 degree valgus cutting guide was placed. The distal femoral cutting block was pinned in place. Distal femoral cut was made take an additional 3 mm of bone off distal femur. The femur was then sized to a size 72.5. The AP cutting block was pinned parallel to the epicondylar axis which was 5 degrees of external rotation. The anterior cut, anterior chamfer, posterior cut, posterior chamfer cuts were made. The box cutting guide was placed and adjust slight lateral lobe. The box cut was made. The knee was flexed. The remnants of the medial and lateral menisci were excised. The osteophytes taken off the posterior aspect the femur. A trial femoral component was placed. The tibial tray was pinned Natacha external rotation and the drill and stem punch were used to create defect in proximal tibia for the tibial tray. The knee was then trialed and the 10 mm insert fit most appropriately. Attention drawn the patella. The patella was cleaned of all soft tissues. Patella thickness measured 25 mm in thickness was cut down to 14. Was sized to a size 34 patella. The lug holes were drilled for 34 patella. The lateral osteophytes removed. Patella button was placed. Knee was taken through range of motion and the patella tracked nicely with no thumbs test. Attention drawn to placing permanent components. All trial components were removed. Bone plug was placed into the distal femur limit blood loss. Double batch Palacos G cement was mixed. A Biomet Vanguard size 72.5 left posterior Byce femoral component, a size 83 tibial tray, a 10 mm posterior Byce polyethylene insert, and a 34 x 8 all poly patella then cemented in place. The knee was brought out into full extension till cement hardened. Final cement check was then performed. Pericapsular tissues were injected with total of 100 cc of Ortho mix. Patient did receive 1 g tranexamic acid. The tourniquet was then let down for final tourniquet time of 61 minutes. Hemostasis assured use electrocautery. Extensor Meclomen closed with combination 1 PDS suture #1 Vicryl suture in a [id number] fashion. Extensor Meclomen checked found to be intact. Subcutaneous tissues then closed with 2 Dexon suture in a buried interrupted fashion skin was closed skin francisco. Leg was then cleaned and dried and sterile dressing was Xeroform, 4 fours, sterile cast padding, Doug bandage were applied. Patient then transferred to the recovery room in stable condition. Patient tolerated procedure well and there are no complications. Chun Telles, my physician dietitian assistant, was present for the entire procedure. His assistance was essential and required for appropriate patient positioning, p repping and draping, surgical exposure, performing the technical details of the operation, placement the implants, closure of the wound, and placement of the sterile bandage. I attest to the content of the Intraoperative Record and any orders documented therein. Any exceptions are noted below.
--- NOTE | 2023-10-30 13:00 | Anesthesiology Progress Note ---
Date of Service October 30, 2023 Anesthesia Post Procedure Vital Signs Vital Signs: Temp Pulse Resp BP Pulse Ox O2 Del Method O2 Flow Rate 10/30/23 12:50 93 H 15 146/87 H 96 Room Air 10/30/23 12:40 97 H 19 124/72 97 Room Air 10/30/23 12:31 36.6 C 80 20 124/63 99 Oxymask 6 10/30/23 08:24 36.8 C 104 H 20 145/92 H 97 Room Air Pain Intensity Left Knee: Pain Intensity: 3 Transfer of Care Handoff Completed per policy Notes Mental Status: alert / awake / arousable and participated in evaluation Patient Amnestic to Procedure: Yes Nausea / Vomiting: adequately controlled Pain: adequately controlled Airway Patency, RR, SpO2: stable & adequate BP & HR: stable & adequate Hydration State: stable & adequate Neuraxial Anesthesia: was administered and sensory block is resolving Anesthetic Complications: no major complications apparent and Pt Satisfied with anesthetic care
--- NOTE | 2023-10-30 13:34 | XRay Report ---
XR knee LT 1 or 2V routine CLINICAL HISTORY: Postoperative evaluation. COMPARISON: Left knee radiographs October 01, 2023. FINDINGS: Alignment of the total left knee arthroplasty is anatomic. There are no periprosthetic fra ctures. There are skin francisco. No unexpected radiopaque foreign bodies are present. IMPRESSION: Expected findings following total left knee arthroplasty. ACT 112: Negative or not required by law. Electronically signed by: Esteban Noel M.D. 10/30/2023 1:32 PM
[2023-10-30] MEDS ORDERED: CARBOHYDRATES FOR HYPOGLYCEMIA PO PRN (13:56)
[2023-10-30] MEDS ORDERED: bisacodyL 10 MG SUPP PR PRN (13:56)
[2023-10-30] MEDS ORDERED: METOCLOPRAMIDE HCL INJ 5 MG/ML 2 ML VIAL IV PRN (13:56)
[2023-10-30] MEDS ORDERED: HYDROmorphone INJ 0.5 MG/0.5 ML SYR IV PRN (13:56)
[2023-10-30] MEDS ORDERED: GLUCOSE 40% GEL 15 GM TUBE PO PRN (13:56)
[2023-10-30] MEDS ORDERED: GLUCOSE 10 TAB/TUBE PO PRN (13:56)
[2023-10-30] MEDS ORDERED: NALOXONE HCL 0.4 MG/1 ML VIAL/CARP IV PRN (13:56)
[2023-10-30] MEDS ORDERED: GLUCAGON FOR INJ 1 MG VIAL SQ PRN (13:56)
[2023-10-30] MEDS ORDERED: DEXTROSE 50% 50 ML SYRINGE IV PRN (13:56)
[2023-10-30] MEDS ORDERED: ALUMINUM/MAGNESIUM SUSP 30 ML UDC PO PRN (13:56)
[2023-10-30] MEDS ORDERED: CETIRIZINE HCL 10 MG TABLET PO PRN (13:56)
[2023-10-30] MEDS ORDERED: MAGNESIUM HYDROXIDE SUSP 30 ML UDC PO PRN (13:56)
[2023-10-30] MEDS ORDERED: HYDROmorphone HCL 2 MG TAB PO PRN (13:56)
[2023-10-30] MEDS ORDERED: ONDANSETRON INJ 2 MG/ML 2 ML VIAL IV PRN (13:56)
[2023-10-30] MEDS ORDERED: PHARMACY GLYCEMIC MGMT CONSULT PRN (13:56)
[2023-10-30] MEDS: SODIUM CHLORIDE 0.9% 1,000 ML IV SCH (14:23)
[2023-10-30] MEDS: KETOROLAC TROMETHAMINE 15 MG/ML VIAL IV SCH (14:24)
[2023-10-30] MEDS: ASCORBIC ACID 500 MG TAB PO SCH (17:12)
[2023-10-30] MEDS: INSULIN ASPART PER UNIT CHARGE SC SCH (17:57)
[2023-10-30] MEDS: TRANEXAMIC ACID / 0.7% NACL 1,000 MG/100 ML BAG IV SCH (17:58)
[2023-10-30] MEDS: ASPIRIN 81 MG ECTAB PO SCH (20:42)
[2023-10-30] MEDS: CHOLECALCIFEROL 25 MCG (1000 UNITS) TAB PO SCH (20:42)
[2023-10-30] MEDS: ATORVASTATIN 20 MG TAB PO SCH (20:42)
[2023-10-30] MEDS: DOCUSATE SODIUM 100 MG CAP PO SCH (20:42)
[2023-10-30] MEDS: SENNA 8.6 MG TAB PO SCH ×2 (20:42→20:43)
[2023-10-30] MEDS ORDERED: DOXYCYCLINE HYCLATE 75 MG PO SCH (21:00)
--- NOTE | 2023-10-31 07:58 | Orthopedic Progress Note ---
Date of Service October 31, 2023 Assessment & Plan (1) Status post total left knee replacement: Continue current pain control PT/OT: wbat dvt prophylaxis: teds, scd's, aspirin d/c planning: discharge home today after therapy labs pending Subjective .73 year old patient POD #1 from left tka. Doing well. Pain controlled. Has been up out of bed and ambulating yesterday. No chest pain. No other complaints. Review of Systems All systems reviewed & are unremarkable except as noted in HPI & below. Physical Exam . alert and oriented. NAD. VSS Left leg: dressing intact. Some bloody drainage on the dressing around the knee. Able to do a straight leg raise, dorsiflex and plantarflex. NVI labs pending. Results & Data Results & Data Laboratory Results . Diagnostic Findings . PG Care Time/CCT Total # of Minutes Spent Total Time Spent with Patient: Total time spent is greater than 50% in coordination of care (as documented) at patient's floor/unit and/or counseling patient: Coding Level of Care Code 64727 Post Operative Follow-Up Diagnoses Status post total left knee replacement Z96.652
[2023-10-31] MEDS: dexAMETHasone 10 MG in SYRINGE 0 ML IV SCH (08:04)
[2023-10-31] MEDS: TAMSULOSIN HCL 0.4 MG CAP PO SCH (08:10)
[2023-10-31] MEDS: MULTIVITAMIN TAB PO SCH (08:10)
[2023-10-31 08:27] LABS: Hematocrit (blood only) 30.5 % (42.0-52.0); Hemoglobin 11.1 g/dl (14.0-18.0); Mean Corpuscular Hemoglobin 30.3 pg (25.0-34.0); Mean Corpuscular Hgb Conc 36.4 g/dL (32.0-36.0); Mean Corpuscular Volume 83.3 fL (80.0-100.0); Mean Platelet Volume 9.4 fL (9.4-12.4); Platelet Count 123 K/uL (130-400); RDW Coefficient of Variation 13.8 % (11.5-14.5); RDW Standard Deviation 41.9 fL (36.4-46.3); Red Blood Count 3.66 M/uL (4.70-6.10); White Blood Count 8.81 K/ul (4.8-10.8)
[2023-10-31 08:42] LABS: BUN Creatinine Ratio 30.1 (10-20); Calcium 8.8 mg/dl (8.6-10.3); Est GFR (African American) 101.9 ml/min; Est GFR (Non-African American) 87.9 ml/min; Potassium 3.8 mmol/L (3.5-5.1)
--- NOTE | 2023-11-01 08:29 | Discharge Summary ---
Date of Service November 01, 2023 Discharge Data Procedures Performed Operation Date: 10/30/23 09:45 Actual Procedures p Left Total Knee Arthroplasty(Left) - Contreras Goyal MD Hospital Course (1) Status post total left knee replacement: This is a 73 year old patient admitted on 10/30/23 and underwent total knee arthroplasty. He tolerated the procedure well and there were no complications. T ransferred to the PACU post op and later to the orthopedic floor for further care. He was given ancef for antibiotic prophylaxis. He was also given ARMIDA stockings, SCDs, and aspirin for DVT prophylaxis. Hemoglobin, hematocrit, and vital signs were monitored during his hospital stay and remained stable. Did not require any blood transfusions. There were no complications during his hospital stay. By post op day #1 the patient was tolerating a diabetic diet, pain was reasonably controlled with oral pain medicine, and he was participating in physical therapy. On post op day #1 the patient was discharged home and set up with home health care. He was given printed discharge instructions including prescriptions for extra strength tylenol, aspirin, cefadroxil, ketorolac, zofran, senokot, hydromorphone, and flomax. Continue physical therapy, weight bearing as tolerated. Continue ARMIDA stockings. Follow up approximately 2 weeks post op or sooner if there are problems or concerns. Coding Level of Care Code None Diagnoses Status post total left knee replacement Z96.652
== END 2023-10-31 11:33 | disposition home health service (06) ==
LOC: 3N 07:39 → ASU 07:39